=== PATIENT | male | born 1955 | race Caucasian/White ===

== ENCOUNTER 2022-03-10 15:35 | Emergency (ER) | payer MEDICARE, OTHER | END 2022-03-10 18:07 | disposition home or self-care (01) | LOC: MW.ED 15:35 | DX: R60.9 Edema, unspecified (principal); I10 Essential (primary) hypertension; Z79.899 Other long term (current) drug therapy | CPT/HCPCS: 93971-26-RT; 93971-RT; 99284-25 ==

== ENCOUNTER 2022-10-03 17:16 | Emergency (ER) | payer MEDICARE, OTHER ==
[2022-10-03] MEDS ORDERED: Sodium Chloride 0.9% 10 ML Syringe FLUSH PRN (18:24)
[2022-10-03] MEDS ORDERED: Sodium Chloride 0.9% 2.5 ML Syringe FLUSH PRN (18:24)
[2022-10-03] MEDS ORDERED: Acetaminophen/HYDROcodone 325-5 MG Tab PO ONE (18:26)
[2022-10-03 19:28] LABS: POTASSIUM,K 3.8 mmol/L (3.5-5.1)
[2022-10-03] MEDS ORDERED: Cephalexin 500 MG Cap PO ONE (20:22)
== END 2022-10-03 21:00 | disposition home or self-care (01) ==
LOC: MW.ED 17:16
DX: L03.115 Cellulitis of right lower limb (principal); I10 Essential (primary) hypertension; Z79.01 Long term (current) use of anticoagulants; Z79.899 Other long term (current) drug therapy; Z87.891 Personal history of nicotine dependence
CPT/HCPCS: 36415; 73590; 80053; 83605; 85025; 85610; 86140; 87040; 93971; 99284; A9270; J3490; 87077; 87186

== ENCOUNTER 2022-10-04 17:03 | Inpatient (IN) | payer MEDICARE, OTHER ==
[2022-10-04] MEDS ORDERED: Sodium Chloride 0.9% 2.5 ML Syringe FLUSH PRN (18:12)
[2022-10-04] MEDS ORDERED: Sodium Chloride 0.9% 10 ML Syringe FLUSH PRN (18:12)
[2022-10-04] MEDS ORDERED: Sodium Chloride 0.9% 1,000 ML IV ONE (18:47)
[2022-10-04] MEDS ORDERED: VANCOmycin 2 GM/400 ML 400 ML IV ONE (19:00)
[2022-10-04 19:05] LABS: CARBON DIOXIDE,CO2 28.3 mmol/L (21.0-32.0); POTASSIUM,K 5.1 mmol/L (3.5-5.1)
[2022-10-04 19:24] LABS: CORONAVIRUS COVID-19 NAA NEGATIVE (NEGATIVE); INFLUENZA A NAA NEGATIVE (NEGATIVE); INFLUENZA B NAA NEGATIVE (NEGATIVE)
[2022-10-04] MEDS ORDERED: Glucagon,Human Recombinant 1 MG Vial IM PRN (22:28)
[2022-10-04] MEDS ORDERED: 50% Dextrose in Water 50 ML Syringe IVPUSH PRN (22:28)
[2022-10-04] MEDS ORDERED: Warfarin 2.5 MG Tab PO ONE (23:15)
[2022-10-04] MEDS ORDERED: amLODIPine 5 MG Tab PO ONE (23:48)
[2022-10-05] MEDS: cefTRIAXone 1 GM in Sodium Chloride 0.9% 50 ML IV SCH (01:26)
[2022-10-05] MEDS: QUEtiapine 25 MG Tab PO SCH ×2 (02:13→21:53)
[2022-10-05] MEDS: Oxymetazoline 0.05% Nasal Spray 30 ML Bottle NAS SCH ×2 (02:14→21:53)
[2022-10-05 06:41] LABS: CARBON DIOXIDE,CO2 24.8 mmol/L (21.0-32.0); POTASSIUM,K 3.6 mmol/L (3.5-5.1)
[2022-10-05] MEDS: Insulin Aspart 100 Units/ML 3 ML Pen SUBCUT SCH ×3 (07:38→16:53)
[2022-10-05] MEDS: Furosemide 80 MG Tab PO SCH (09:34)
[2022-10-05] MEDS: Losartan 50 MG Tab PO SCH (09:34)
[2022-10-05] MEDS: Warfarin Sliding Scale PO SCH (13:18)
[2022-10-05] MEDS ORDERED: Warfarin 10 MG Tab PO ONE (14:00)
[2022-10-05] MEDS: VANCOmycin 1.5 GM/300 ML 300 ML IV SCH (18:37)
[2022-10-05] MEDS ORDERED: VANCOmycin 2 GM/400 ML 400 ML IV SCH (19:00)
[2022-10-05] MEDS: amLODIPine 5 MG Tab PO SCH (21:53)
[2022-10-06] MEDS: cefTRIAXone 1 GM in Sodium Chloride 0.9% 50 ML IV SCH (00:14)
[2022-10-06] MEDS: Insulin Aspart 100 Units/ML 3 ML Pen SUBCUT SCH ×3 (06:32→16:39)
[2022-10-06] MEDS: Furosemide 80 MG Tab PO SCH ×2 (07:47→08:08)
[2022-10-06] MEDS: Losartan 50 MG Tab PO SCH ×2 (07:47→08:08)
[2022-10-06] MEDS ORDERED: Sodium Chloride 0.9% 2.5 ML Syringe FLUSH PRN (08:00)
[2022-10-06] MEDS ORDERED: Sodium Chloride 0.9% 10 ML Syringe FLUSH PRN (08:00)
[2022-10-06 08:44] LABS: CARBON DIOXIDE,CO2 23.9 mmol/L (21.0-32.0); POTASSIUM,K 3.6 mmol/L (3.5-5.1)
[2022-10-06] MEDS ORDERED: Warfarin 2.5 MG Tab PO ONE (14:00)
[2022-10-06] MEDS: Warfarin Sliding Scale PO SCH (16:10)
[2022-10-06] MEDS: VANCOmycin 1.5 GM/300 ML 300 ML IV SCH (18:20)
[2022-10-06] MEDS ORDERED: Polyethylene Glycol 3350 Powder 17 GM Packet PO PRN (18:32)
[2022-10-06] MEDS: Amitriptyline 25 MG Tab PO SCH (21:20)
[2022-10-06] MEDS: QUEtiapine 25 MG Tab PO SCH ×2 (21:20→22:35)
[2022-10-06] MEDS: Oxymetazoline 0.05% Nasal Spray 30 ML Bottle NAS SCH (21:20)
[2022-10-06] MEDS: amLODIPine 5 MG Tab PO SCH (21:20)
[2022-10-07] MEDS: cefTRIAXone 1 GM in Sodium Chloride 0.9% 50 ML IV SCH (00:19)
[2022-10-07 07:03] LABS: CARBON DIOXIDE,CO2 24.7 mmol/L (21.0-32.0); POTASSIUM,K 3.6 mmol/L (3.5-5.1)
[2022-10-07] MEDS: Insulin Aspart 100 Units/ML 3 ML Pen SUBCUT SCH ×3 (07:17→17:02)
[2022-10-07] MEDS: Furosemide 80 MG Tab PO SCH (09:12)
[2022-10-07] MEDS: Losartan 50 MG Tab PO SCH (09:12)
[2022-10-07 10:23] LABS: HEMOGLOBIN A1C 5.4 %
[2022-10-07] MEDS ORDERED: Metolazone 5 MG Tab PO ONE (10:23)
[2022-10-07] MEDS: Polyethylene Glycol 3350 Powder 17 GM Packet PO SCH ×2 (10:56→21:36)
[2022-10-07] MEDS ORDERED: Warfarin 10 MG Tab PO ONE (14:00)
[2022-10-07] MEDS: Warfarin Sliding Scale PO SCH (15:30)
[2022-10-07] MEDS: amLODIPine 5 MG Tab PO SCH (21:34)
[2022-10-07] MEDS: Amitriptyline 25 MG Tab PO SCH (21:34)
[2022-10-07] MEDS: QUEtiapine 25 MG Tab PO SCH (21:34)
[2022-10-07] MEDS: Oxymetazoline 0.05% Nasal Spray 30 ML Bottle NAS SCH (21:36)
[2022-10-08] MEDS: cefTRIAXone 2 GM in Premix Bag 1 BAG IV SCH (00:58)
[2022-10-08 07:16] LABS: POTASSIUM,K 3.2 mmol/L (3.5-5.1)
[2022-10-08] MEDS: Insulin Aspart 100 Units/ML 3 ML Pen SUBCUT SCH ×3 (07:47→17:19)
[2022-10-08] MEDS: Potassium Chloride 20 MEQ Tab.ER PO SCH ×2 (08:13→14:15)
[2022-10-08] MEDS: Furosemide 80 MG Tab PO SCH (08:13)
[2022-10-08] MEDS: Losartan 50 MG Tab PO SCH (08:13)
[2022-10-08] MEDS: Polyethylene Glycol 3350 Powder 17 GM Packet PO SCH ×2 (08:14→20:08)
[2022-10-08] MEDS ORDERED: Warfarin 10 MG Tab PO ONE (14:00)
[2022-10-08] MEDS: Warfarin Sliding Scale PO SCH (14:31)
[2022-10-08] MEDS: QUEtiapine 25 MG Tab PO SCH (20:07)
[2022-10-08] MEDS: Amitriptyline 25 MG Tab PO SCH (20:07)
[2022-10-08] MEDS: amLODIPine 5 MG Tab PO SCH (20:07)
[2022-10-08] MEDS: Oxymetazoline 0.05% Nasal Spray 30 ML Bottle NAS SCH (20:08)
[2022-10-09] MEDS: cefTRIAXone 2 GM in Premix Bag 1 BAG IV SCH (00:34)
[2022-10-09] MEDS: Polyethylene Glycol 3350 Powder 17 GM Packet PO SCH ×2 (02:04→09:54)
[2022-10-09] MEDS: Insulin Aspart 100 Units/ML 3 ML Pen SUBCUT SCH ×2 (08:04→12:12)
[2022-10-09] MEDS ORDERED: Cephalexin 500 MG Cap PO ONE (09:15)
[2022-10-09] MEDS: Furosemide 80 MG Tab PO SCH (09:50)
[2022-10-09] MEDS: Losartan 50 MG Tab PO SCH (09:50)
== END 2022-10-09 12:59 | disposition home or self-care (01) | DRG 603 ==
LOC: MW.ED 17:03 → MW.MS 19:29
PROVIDERS: ADMIT Internal Medicine; ATTEND Internal Medicine
DX: L03.115 Cellulitis of right lower limb (principal); E86.0 Dehydration; R78.81 Bacteremia; E11.40 Type 2 diabetes mellitus with diabetic neuropathy, unspecified; I48.11 Longstanding persistent atrial fibrillation; F12.10 Cannabis abuse, uncomplicated; I10 Essential (primary) hypertension; Z79.84 Long term (current) use of oral hypoglycemic drugs; Z79.899 Other long term (current) drug therapy; E11.42 Type 2 diabetes mellitus with diabetic polyneuropathy; K59.09 Other constipation; F41.9 Anxiety disorder, unspecified; F32.A Depression, unspecified; Z96.641 Presence of right artificial hip joint; Z87.891 Personal history of nicotine dependence; Z20.822 Contact with and (suspected) exposure to COVID-19; Z79.4 Long term (current) use of insulin; Z79.01 Long term (current) use of anticoagulants; Z97.3 Presence of spectacles and contact lenses; Z86.73 Personal history of transient ischemic attack (TIA), and cerebral infarction without residual deficits; Z90.89 Acquired absence of other organs
CPT/HCPCS: 0240U; 36415; 80048; 80053; 80202; 82947; 83036; 83605; 83735; 83880; 85025; 85610; 85730; 87040; 96365; 99284; A9270-GY; J0696; J3370; J3490; J7030

== ENCOUNTER 2023-01-27 11:20 | Emergency (ER) | payer MEDICARE, OTHER ==
[2023-01-27] MEDS ORDERED: Oxymetazoline 0.05% Nasal Spray 30 ML Bottle NAS ONE (11:57)
[2023-01-27 12:26] LABS: CARBON DIOXIDE,CO2 26.1 mmol/L (21.0-32.0)
== END 2023-01-27 13:00 | disposition home or self-care (01) ==
LOC: MW.ED 11:20
DX: R04.0 Epistaxis (principal); I48.91 Unspecified atrial fibrillation; I10 Essential (primary) hypertension; Z79.01 Long term (current) use of anticoagulants; Z79.899 Other long term (current) drug therapy
CPT/HCPCS: 36415; 80048; 85025; 85610; 99283; A9270; 99282

== ENCOUNTER 2024-04-26 15:09 | Observation (INO) | payer MEDICARE, OTHER ==
[2024-04-26] MEDS: Sodium Chloride 0.9% 500 ML IV ONE (16:13)
[2024-04-26] MEDS: Sodium Chloride 0.9% 2.5 ML Syringe FLUSH PRN (16:13)
[2024-04-26] MEDS: Sodium Chloride 0.9% 10 ML Syringe FLUSH PRN (16:13)
[2024-04-26 16:20] LABS: BASOPHILS ABSOLUTE AUTO 0.08 K/uL (0.00-0.20); BASOPHILS PERCENT AUTO 1.3 % (0.0-1.0); EOSINOPHILS ABSOLUTE AUTO 0.36 K/uL (0.00-0.45); EOSINOPHILS PERCENT AUTO 5.7 % (0.0-6.0); HEMATOCRIT 35.4 % (42.0-52.0); HEMOGLOBIN 12.2 g/dL (14.0-18.0); IMMATURE GRAN ABSOLUTE AUTO 0.02 K/uL (0.00-0.05); IMMATURE GRAN PERCENT AUTO 0.3 % (0.0-0.4); LYMPHOCYTES ABSOLUTE AUTO 1.07 K/uL (1.00-4.80); LYMPHOCYTES PERCENT AUTO 16.9 % (24.0-44.0); MEAN CORPUSCULAR HEMOGLOBIN 29.4 pg (28.0-32.0); MEAN CORPUSCULAR HGB CONC 34.5 g/dL (32.0-36.0); MEAN CORPUSCULAR VOLUME 85.3 fL (83.0-99.0); MEAN PLATELET VOLUME 9.5 fL (9.4-12.4); MONOCYTES ABSOLUTE AUTO 0.43 K/uL (0.00-0.80); MONOCYTES PERCENT AUTO 6.8 % (0.0-8.0); NEUTROPHILS ABSOLUTE AUTO 4.36 K/uL (1.80-7.70); PLATELET COUNT,PLT 151 K/uL (150-400); RED BLOOD CELL COUNT 4.15 M/uL (4.52-5.90); WHITE BLOOD CELL COUNT,WBC 6.32 K/uL (3.9-11.3)
[2024-04-26 16:41] LABS: INR 1.45 (0.86-1.11)
[2024-04-26 16:42] LABS: HEMOGLOBIN A1C 5.8 %
[2024-04-26 16:50] LABS: A/G RATIO 0.9 (0.9-1.6); ALANINE AMINOTRANSFERASE,ALT 17 IU/L (14-63); ALBUMIN 3.3 g/dL (3.4-5.0); ALKALINE PHOSPHATASE 88 U/L (46-116); ASPARTATE AMNIOTRANSFERASE,AST 17 IU/L (15-37); BILIRUBIN TOTAL 0.6 mg/dL (0.2-1.0); BLOOD UREA NITROGEN,BUN 32 mg/dL (7.0-18.0); CALCIUM 8.3 mg/dL (8.5-10.1); CARBON DIOXIDE,CO2 24.5 mmol/L (21.0-32.0); CHLORIDE,CL 105 mmol/L (98-107); CREATININE 2.5 mg/dL (0.8-1.3); GLUCOSE RANDOM 112 mg/dL (74-106); MAGNESIUM 2.2 mg/dL (1.8-2.4); POTASSIUM,K 4.6 mmol/L (3.5-5.1); PROTEIN TOTAL,TP 6.8 g/dL (6.4-8.2); SODIUM,NA 141 mmol/L (136-148)
[2024-04-26 16:52] LABS: ESTIMATED GFR 27 mL/min (>60)
[2024-04-26] MEDS: cefTRIAXone 2 GM in Sodium Chloride 0.9% 50 ML IV ONE (17:40)
[2024-04-26] MEDS: Carvedilol 25 MG Tab PO SCH (22:03)
[2024-04-26] MEDS: amLODIPine 5 MG Tab PO SCH (22:04)
[2024-04-26] MEDS: QUEtiapine 25 MG Tab PO SCH (22:04)
[2024-04-26] MEDS: Warfarin 10 MG Tab PO ONE (22:04)
[2024-04-27 08:34] LABS: CALCIUM 7.8 mg/dL (8.5-10.1); CARBON DIOXIDE,CO2 25.4 mmol/L (21.0-32.0); CREATININE 2.6 mg/dL (0.8-1.3); EST CRCL DRUG DOSING (CG) 33.85 mL/min; POTASSIUM,K 4.4 mmol/L (3.5-5.1)
[2024-04-27 09:00] LABS: HEMATOCRIT 29.5 % (42.0-52.0); MEAN CORPUSCULAR HEMOGLOBIN 29.3 pg (28.0-32.0); MEAN CORPUSCULAR HGB CONC 33.9 g/dL (32.0-36.0); MEAN CORPUSCULAR VOLUME 86.5 fL (83.0-99.0); MEAN PLATELET VOLUME 9.6 fL (9.4-12.4); PLATELET COUNT,PLT 107 K/uL (150-400); RED BLOOD CELL COUNT 3.41 M/uL (4.52-5.90); WHITE BLOOD CELL COUNT,WBC 5.19 K/uL (3.9-11.3)
[2024-04-27 09:01] LABS: BASOPHILS ABSOLUTE AUTO 0.06 K/uL (0.00-0.20); BASOPHILS PERCENT AUTO 1.2 % (0.0-1.0); EOSINOPHILS ABSOLUTE AUTO 0.33 K/uL (0.00-0.45); EOSINOPHILS PERCENT AUTO 6.4 % (0.0-6.0); IMMATURE GRAN ABSOLUTE AUTO 0.02 K/uL (0.00-0.05); IMMATURE GRAN PERCENT AUTO 0.4 % (0.0-0.4); LYMPHOCYTES ABSOLUTE AUTO 1.12 K/uL (1.00-4.80); LYMPHOCYTES PERCENT AUTO 21.6 % (24.0-44.0); MONOCYTES ABSOLUTE AUTO 0.49 K/uL (0.00-0.80); MONOCYTES PERCENT AUTO 9.4 % (0.0-8.0); NEUTROPHILS ABSOLUTE AUTO 3.17 K/uL (1.80-7.70)
[2024-04-27 09:16] LABS: INR 1.5 (0.86-1.11)
[2024-04-29] MEDS ORDERED: Warfarin 5 MG Tab PO SCH (20:29)
== END 2024-04-27 13:03 | disposition home or self-care (01) ==
LOC: MW.ED 15:09 → MW.MS 17:26
PROVIDERS: ADMIT Internal Medicine; ATTEND Internal Medicine
DX: E11.622 Type 2 diabetes mellitus with other skin ulcer (principal); L97.911 Non-pressure chronic ulcer of unspecified part of right lower leg limited to breakdown of skin; N17.9 Acute kidney failure, unspecified; E11.22 Type 2 diabetes mellitus with diabetic chronic kidney disease; I12.9 Hypertensive chronic kidney disease with stage 1 through stage 4 chronic kidney disease, or unspecified chronic kidney disease; N18.9 Chronic kidney disease, unspecified; I87.2 Venous insufficiency (chronic) (peripheral); I48.11 Longstanding persistent atrial fibrillation; F41.9 Anxiety disorder, unspecified; F32.A Depression, unspecified; E66.9 Obesity, unspecified; Z79.01 Long term (current) use of anticoagulants; Z79.899 Other long term (current) drug therapy; Z87.891 Personal history of nicotine dependence; Z68.30 Body mass index [BMI] 30.0-30.9, adult
CPT/HCPCS: 36415; 71045; 80048; 80053; 83036; 83735; 85025; 85610; 96361; 96365; 99284; A9270; J0696; J3490; J7040; 99285; G0378

== ENCOUNTER 2025-10-28 03:29 | Inpatient (IN) | payer MEDICARE, OTHER ==
[2025-10-28 03:58] LABS: BASOPHILS ABSOLUTE AUTO 0.07 K/uL (0.00-0.20); BASOPHILS PERCENT AUTO 0.9 % (0.0-1.0); EOSINOPHILS ABSOLUTE AUTO 0.31 K/uL (0.00-0.45); EOSINOPHILS PERCENT AUTO 3.8 % (0.0-6.0); IMMATURE GRAN ABSOLUTE AUTO 0.04 K/uL (0.00-0.05); IMMATURE GRAN PERCENT AUTO 0.5 % (0.0-0.4); LYMPHOCYTES ABSOLUTE AUTO 0.72 K/uL (1.00-4.80); LYMPHOCYTES PERCENT AUTO 8.9 % (24.0-44.0); MEAN PLATELET VOLUME 9.1 fL (9.4-12.4); MONOCYTES ABSOLUTE AUTO 0.47 K/uL (0.00-0.80); MONOCYTES PERCENT AUTO 5.8 % (0.0-8.0); NEUTROPHILS ABSOLUTE AUTO 6.49 K/uL (1.80-7.70); NEUTROPHILS PERCENT AUTO 80.1 % (41.0-71.0); NRBC ABSOLUTE 0.00 K/uL (0.00-0.02); NRBC PERCENT 0.0 /100WBC (0.0-0.2); PLATELET COUNT,PLT 141 K/uL (150-400); RED BLOOD CELL COUNT 4.03 M/uL (4.52-5.90); WHITE BLOOD CELL COUNT,WBC 8.10 K/uL (3.9-11.3)
[2025-10-28 04:21] LABS: A/G RATIO 1.0 (0.9-1.6); ALANINE AMINOTRANSFERASE,ALT 16.0 IU/L (14-63); ASPARTATE AMNIOTRANSFERASE,AST 19.0 IU/L (15-37); BILIRUBIN TOTAL 1.1 mg/dL (0.2-1.0); BLOOD UREA NITROGEN,BUN 41.0 mg/dL (7.0-18.0); CARBON DIOXIDE,CO2 23.6 mmol/L (21.0-32.0); CHLORIDE,CL 107.0 mmol/L (98-107); CREATININE 3.5 mg/dL (0.8-1.3); EST CRCL DRUG DOSING (CG) 24.46 mL/min; GLUCOSE RANDOM 116.0 mg/dL (74-106); POTASSIUM,K 4.5 mmol/L (3.5-5.1); PROTEIN TOTAL,TP 7.1 g/dL (6.4-8.2); SODIUM,NA 143.0 mmol/L (136-148)
[2025-10-28 04:22] LABS: ESTIMATED GFR 18.0 mL/min (>60)
[2025-10-28 06:20] LABS: APPEARANCE,URINE CLEAR; GLUCOSE,URINE NEGATIVE (NEGATIVE); OCCULT BLOOD,URINE SMALL (NEGATIVE)
[2025-10-28 06:30] LABS: AMPHETAMINES SCREEN, URINE NEGATIVE (CUTOFF=500); BUPRENORPHINE SCREEN,URINE NEGATIVE (CUTOFF=10); METHADONE SCREEN, URINE NEGATIVE (CUTOFF=200); METHAMPHETAMINES SCREEN, URINE NEGATIVE (CUTOFF=500); OXYCODONE SCREEN,URINE NEGATIVE (CUT0FF=100); PCP SCREEN,URINE NEGATIVE (CUTOFF=25); THC SCREEN,URINE 20 NG/ML PRESUMPTIVE POSITIVE (CUTOFF=50)
[2025-10-28 06:34] LABS: EPITHELIAL CELLS,URINE FEW (NONE-FEW)
[2025-10-28 06:53] LABS: INR 2.26 (0.86-1.11)
[2025-10-28 07:07] LABS: PRO B-TYPE NATRIUR PEPT,BNPPRO 6937.0 pg/mL (0-125); TSH ULTRASENSITIVE 2.77 uIU/mL (0.36-3.74)
[2025-10-28] MEDS: Furosemide 40 MG/4 ML VIAL IVPUSH ONE (07:47)
[2025-10-28] MEDS ORDERED: Sodium Chloride 0.9% 2.5 ML Syringe FLUSH PRN (09:39)
[2025-10-28] MEDS ORDERED: Acetaminophen/HYDROcodone 325-5 MG Tab PO PRN (09:39)
[2025-10-28] MEDS ORDERED: Sodium Chloride 0.9% 10 ML Syringe FLUSH PRN (09:39)
[2025-10-28] MEDS ORDERED: Ondansetron 4 MG Tab.DIS PO PRN (09:50)
[2025-10-28] MEDS ORDERED: Ondansetron 4 MG/2 ML SDV IVPUSH PRN (09:50)
[2025-10-28] MEDS: Warfarin Sliding Scale SCH (14:13)
[2025-10-28] MEDS: Furosemide 20 MG/2 ML VIAL IVPUSH SCH (14:13)
[2025-10-28] MEDS ORDERED: Furosemide 20 MG/2 ML VIAL IVPUSH SCH (21:00)
[2025-10-29 06:09] LABS: BASOPHILS ABSOLUTE AUTO 0.05 K/uL (0.00-0.20); BASOPHILS PERCENT AUTO 0.9 % (0.0-1.0); EOSINOPHILS ABSOLUTE AUTO 0.31 K/uL (0.00-0.45); EOSINOPHILS PERCENT AUTO 5.6 % (0.0-6.0); IMMATURE GRAN ABSOLUTE AUTO 0.02 K/uL (0.00-0.05); IMMATURE GRAN PERCENT AUTO 0.4 % (0.0-0.4); LYMPHOCYTES ABSOLUTE AUTO 0.90 K/uL (1.00-4.80); LYMPHOCYTES PERCENT AUTO 16.2 % (24.0-44.0); MEAN PLATELET VOLUME 9.4 fL (9.4-12.4); MONOCYTES ABSOLUTE AUTO 0.47 K/uL (0.00-0.80); MONOCYTES PERCENT AUTO 8.5 % (0.0-8.0); NEUTROPHILS ABSOLUTE AUTO 3.80 K/uL (1.80-7.70); NEUTROPHILS PERCENT AUTO 68.4 % (41.0-71.0); NRBC ABSOLUTE 0.00 K/uL (0.00-0.02); NRBC PERCENT 0.0 /100WBC (0.0-0.2); PLATELET COUNT,PLT 118 K/uL (150-400); RED BLOOD CELL COUNT 3.30 M/uL (4.52-5.90); WHITE BLOOD CELL COUNT,WBC 5.55 K/uL (3.9-11.3)
[2025-10-29 06:22] LABS: INR 2.54 (0.86-1.11)
[2025-10-29 06:39] LABS: A/G RATIO 0.9 (0.9-1.6); ALANINE AMINOTRANSFERASE,ALT 14.0 IU/L (14-63); ASPARTATE AMNIOTRANSFERASE,AST 13.0 IU/L (15-37); BILIRUBIN TOTAL 0.9 mg/dL (0.2-1.0); BLOOD UREA NITROGEN,BUN 44.0 mg/dL (7.0-18.0); CARBON DIOXIDE,CO2 24.3 mmol/L (21.0-32.0); CHLORIDE,CL 105.0 mmol/L (98-107); CREATININE 3.5 mg/dL (0.8-1.3); EST CRCL DRUG DOSING (CG) 24.46 mL/min; ESTIMATED GFR 18.0 mL/min (>60); GLUCOSE RANDOM 111.0 mg/dL (74-106); PHOSPHORUS 3.6 mg/dL (2.6-4.7); POTASSIUM,K 4.0 mmol/L (3.5-5.1); PROTEIN TOTAL,TP 6.4 g/dL (6.4-8.2); SODIUM,NA 141.0 mmol/L (136-148)
[2025-10-29] MEDS: Furosemide 40 MG/4 ML VIAL IVPUSH SCH (10:43)
[2025-10-30 05:54] LABS: BASOPHILS ABSOLUTE AUTO 0.09 K/uL (0.00-0.20); BASOPHILS PERCENT AUTO 1.7 % (0.0-1.0); EOSINOPHILS ABSOLUTE AUTO 0.23 K/uL (0.00-0.45); EOSINOPHILS PERCENT AUTO 4.4 % (0.0-6.0); IMMATURE GRAN ABSOLUTE AUTO 0.01 K/uL (0.00-0.05); IMMATURE GRAN PERCENT AUTO 0.2 % (0.0-0.4); LYMPHOCYTES ABSOLUTE AUTO 1.01 K/uL (1.00-4.80); LYMPHOCYTES PERCENT AUTO 19.5 % (24.0-44.0); MEAN PLATELET VOLUME 9.5 fL (9.4-12.4); MONOCYTES ABSOLUTE AUTO 0.48 K/uL (0.00-0.80); MONOCYTES PERCENT AUTO 9.3 % (0.0-8.0); NEUTROPHILS ABSOLUTE AUTO 3.35 K/uL (1.80-7.70); NEUTROPHILS PERCENT AUTO 64.9 % (41.0-71.0); NRBC ABSOLUTE 0.00 K/uL (0.00-0.02); NRBC PERCENT 0.0 /100WBC (0.0-0.2); PLATELET COUNT,PLT 124 K/uL (150-400); RED BLOOD CELL COUNT 3.32 M/uL (4.52-5.90); WHITE BLOOD CELL COUNT,WBC 5.17 K/uL (3.9-11.3)
[2025-10-30 06:22] LABS: INR 2.03 (0.86-1.11)
[2025-10-30 06:29] LABS: A/G RATIO 0.9 (0.9-1.6); ALANINE AMINOTRANSFERASE,ALT 17.0 IU/L (14-63); ASPARTATE AMNIOTRANSFERASE,AST 16.0 IU/L (15-37); BILIRUBIN TOTAL 0.8 mg/dL (0.2-1.0); BLOOD UREA NITROGEN,BUN 45.0 mg/dL (7.0-18.0); CARBON DIOXIDE,CO2 25.2 mmol/L (21.0-32.0); CHLORIDE,CL 105.0 mmol/L (98-107); CREATININE 3.9 mg/dL (0.8-1.3); EST CRCL DRUG DOSING (CG) 21.95 mL/min; GLUCOSE RANDOM 105.0 mg/dL (74-106); PHOSPHORUS 3.8 mg/dL (2.6-4.7); POTASSIUM,K 3.8 mmol/L (3.5-5.1); PROTEIN TOTAL,TP 6.6 g/dL (6.4-8.2); SODIUM,NA 141.0 mmol/L (136-148)
[2025-10-30 06:41] LABS: ESTIMATED GFR 16.0 mL/min (>60)
== END 2025-10-30 20:30 | DRG 292 ==
LOC: MW.ED 03:29 → MW.MS 07:59
PROVIDERS: ADMIT Family Medicine; ATTEND Family Medicine
DX: I13.0 Hypertensive heart and chronic kidney disease with heart failure and stage 1 through stage 4 chronic kidney disease, or unspecified chronic kidney disease (principal); I11.0 Hypertensive heart disease with heart failure; N17.9 Acute kidney failure, unspecified; N18.4 Chronic kidney disease, stage 4 (severe); R44.3 Hallucinations, unspecified; I50.9 Heart failure, unspecified; I87.8 Other specified disorders of veins; N40.1 Benign prostatic hyperplasia with lower urinary tract symptoms; F32.A Depression, unspecified; H54.7 Unspecified visual loss; I48.91 Unspecified atrial fibrillation; F41.9 Anxiety disorder, unspecified; E66.9 Obesity, unspecified; E03.9 Hypothyroidism, unspecified; E78.5 Hyperlipidemia, unspecified; Z96.649 Presence of unspecified artificial hip joint; Z86.73 Personal history of transient ischemic attack (TIA), and cerebral infarction without residual deficits; Z79.890 Hormone replacement therapy; Z79.01 Long term (current) use of anticoagulants; Z79.899 Other long term (current) drug therapy; Z79.1 Long term (current) use of non-steroidal anti-inflammatories (NSAID); Z68.39 Body mass index [BMI] 39.0-39.9, adult; Z98.890 Other specified postprocedural states
CPT/HCPCS: 36415; 70450; 71045; 80053; 80305; 80307; 81001; 83735; 83880; 84100; 84443; 84484; 85025; 85610; 93005; 96374; 99285; A9270 ×3; J1938; 93010; 93306; 97161-GP; 99223; 99232; 99239